=== PATIENT | male | born 1945 | race Caucasian/White ===

== ENCOUNTER 2018-04-28 06:00 | Emergency (ER) | payer MEDICARE, MEDICAID ==
[~2018-04-28] VITALS: Ht 177.8 cm; Wt 106.7 kg
[~2018-04-28 06:00] MED LIST: ALLO100T PO; ATOR20TA PO; CARV-50 PO; CEPH500C5 PO; CLOP75TA15 PO; FURO-150 PO; LISI10TA4 PO; WARF1TAB PO
[2018-04-28] MEDS ORDERED: fentaNYL/PF 50MCG/1 ML 2ML syringe IM ONE (06:10)
[2018-04-28] MEDS ORDERED: LORazepam 2 mg/ml vial IM ONE (06:30)
[2018-04-28] MEDS ORDERED: propofol 10mg/ml 20ml vial IV ONE (07:30)
[2018-04-28 08:33] VITALS: BP 143/85
[2018-04-28] MEDS ORDERED: acetaminophen 325mg tablet PO ONE (09:35)
[2018-04-28] MEDS ORDERED: lisinopril 10 MG tablet PO SCH (10:00)
[2018-04-28] MEDS ORDERED: clopidogrel 75mg tablet PO SCH (10:00)
[2018-04-28] MEDS ORDERED: carVEDilol 12.5mg tablet PO SCH (10:00)
[2018-04-28 10:23] LABS: INR 2.1 INR; PROTHROMBIN TIME 20.7 SECONDS (9.0-12.0)
[2018-04-28] MEDS ORDERED: atorvastatin 20mg tablet PO SCH (14:00)
[2018-04-28] MEDS ORDERED: allopurinol 300 MG tablet PO SCH (14:00)
[2018-04-28] MEDS ORDERED: warfarin 1mg tablet PO SCH (21:00)
== END 2018-04-28 11:28 | disposition home or self-care (01) ==
LOC: ER 06:00
DX: S43.005A Unspecified dislocation of left shoulder joint, initial encounter (principal); I11.0 Hypertensive heart disease with heart failure; I50.9 Heart failure, unspecified; E11.9 Type 2 diabetes mellitus without complications; Z95.0 Presence of cardiac pacemaker; W01.0XXA Fall on same level from slipping, tripping and stumbling without subsequent striking against object, initial encounter; Y93.89 Activity, other specified; Y92.89 Other specified places as the place of occurrence of the external cause; Y99.8 Other external cause status; Z79.01 Long term (current) use of anticoagulants; Z79.899 Other long term (current) drug therapy
CPT/HCPCS: 23650; 36415; 70450; 72125; 73020; 85610; 96372; 99152; 99153; 99285; J2060; J2704; J3010; J7030; L3650; A4620

== ENCOUNTER 2018-05-07 13:30 | Outpatient (CLI) | payer MEDICARE, MEDICAID ==
[2018-05-07 13:30] VITALS: BP 161/89
[~2018-05-07 13:30] MED LIST changes: -CEPH500C5 PO; -FURO-150 PO
== END 2018-05-07 14:25 | disposition home or self-care (01) ==
LOC: ORTHO 13:30
PROVIDERS: ATTEND Nurse Practitioner Family
DX: S43.005A Unspecified dislocation of left shoulder joint, initial encounter (principal); S42.202A Unspecified fracture of upper end of left humerus, initial encounter for closed fracture; Z79.899 Other long term (current) drug therapy; W18.30XA Fall on same level, unspecified, initial encounter; Y93.89 Activity, other specified; Y92.89 Other specified places as the place of occurrence of the external cause; Y99.8 Other external cause status
CPT/HCPCS: 99213

== ENCOUNTER 2018-05-09 15:26 | Emergency (ER) | payer MEDICARE, MEDICAID ==
[~2018-05-09] VITALS: Ht 170.2 cm; Wt 72.7 kg
[2018-05-09 18:07] VITALS: BP 128/87
== END 2018-05-09 18:09 | disposition home or self-care (01) ==
LOC: ER 15:27
DX: S40.012D Contusion of left shoulder, subsequent encounter (principal); S20.222D Contusion of left back wall of thorax, subsequent encounter; S30.1XXD Contusion of abdominal wall, subsequent encounter; I11.0 Hypertensive heart disease with heart failure; I50.9 Heart failure, unspecified; E78.00 Pure hypercholesterolemia, unspecified; I48.91 Unspecified atrial fibrillation; Z95.0 Presence of cardiac pacemaker; Z79.01 Long term (current) use of anticoagulants; Z79.899 Other long term (current) drug therapy; W18.39XD Other fall on same level, subsequent encounter
CPT/HCPCS: 99284

== ENCOUNTER 2018-05-13 11:37 | Outpatient (CLI) | payer MEDICARE, MEDICAID ==
[2018-05-13 11:39] VITALS: BP 152/90
== END 2018-05-13 12:55 | disposition home or self-care (01) ==
LOC: ORTHO 11:37
PROVIDERS: ATTEND Nurse Practitioner Family
DX: S42.202A Unspecified fracture of upper end of left humerus, initial encounter for closed fracture (principal); I11.0 Hypertensive heart disease with heart failure; I50.9 Heart failure, unspecified; W18.30XA Fall on same level, unspecified, initial encounter; Y93.89 Activity, other specified; Y92.89 Other specified places as the place of occurrence of the external cause; Y99.8 Other external cause status
CPT/HCPCS: 73010; 73030; 99213

== ENCOUNTER 2018-07-24 11:20 | Inpatient (IN) | payer MEDICARE, MEDICAID ==
[~2018-07-24] VITALS: Ht 180.3 cm; Wt 93.0 kg
[2018-07-24 12:28] LABS: BASOPHILS % (AUTO) 0.3 % (0-1); EOSINOPHILS # (AUTO) 0.1 X10'3 (0-0.9); EOSINOPHILS % (AUTO) 0.7 % (0-6); HEMATOCRIT 43.7 % (42.0-52.0); HEMOGLOBIN 14.7 g/dl (14.0-17.9); LYMPHOCYTES # (AUTO) 0.8 X10'3 (1.1-4.8); LYMPHOCYTES % (AUTO) 10.3 % (21-51); MEAN CORPUSCULAR HEMOGLOBIN 31.9 PG (27.0-31.0); MEAN CORPUSCULAR HGB CONC 33.7 % (33.0-36.5); MEAN CORPUSCULAR VOLUME 94.5 FL (78-98); MEAN PLATELET VOLUME 8.8 FL (7.4-10.4); MONOCYTES # (AUTO) 0.4 X10'3 (0-0.9); MONOCYTES % (AUTO) 4.8 % (2-12); NEUTROPHILS # (AUTO) 6.8 X10'3 (1.8-7.7); NEUTROPHILS % (AUTO) 83.9 % (42-75); PLATELET COUNT 284 X10'3 (140-440); RED BLOOD COUNT 4.63 X10'6 (4.70-6.10); RED CELL DISTRIBUTION WIDTH 14.1 % (11.5-14.5); WHITE BLOOD COUNT 8.1 X10'3 (4.5-11.0)
[2018-07-24 12:54] LABS: ALANINE AMINOTRANSFERASE 29 U/L (12-78); ALBUMIN 3.9 G/DL (3.4-5.0); ALKALINE PHOSPHATASE 97 IU/L (46-116); ANION GAP 7 (8-16); ASPARTATE AMINO TRANSFERASE 14 U/L (10-37); BILIRUBIN,TOTAL 1.2 MG/DL (0.1-1.0); BLOOD UREA NITROGEN 35 MG/DL (7-18); BUN/CREATININE RATIO 17.5 (5.4-32.0); CALCIUM 9.2 MG/DL (8.5-10.1); CHLORIDE 91 MMOL/L (99-107); ETHANOL < 0.010 GM/DL (0.0-0.010); POTASSIUM 5.5 MMOL/L (3.5-5.1); SODIUM 126 MMOL/L (135-145); TOTAL CARBON DIOXIDE 28.2 MMOL/L (24-32); eGFR 33 ML/MIN
[2018-07-24 12:58] LABS: GLUCOSE 699 MG/DL (70-104)
[2018-07-24 13:50] LABS: URINE AMPHETAMINE SCREEN NEGATIVE (Neg); URINE BARBITUATE SCREEN NEGATIVE (Neg); URINE BENZODIAZEPINES SCREEN NEGATIVE (Neg); URINE CANNABINOID SCREEN NEGATIVE (Neg); URINE COCAINE SCREEN NEGATIVE (Neg); URINE METHADONE SCREEN NEGATIVE (Neg); URINE OPIATE SCREEN NEGATIVE (Neg); URINE PHENCYCLIDINE SCREEN NEGATIVE (Neg)
[2018-07-24] MEDS ORDERED: insulin regular, human 10 units/0.1 ml syringe SQ ONE (14:35)
[2018-07-24] MEDS ORDERED: normal saline 1000ML IV soln IVB ONE (14:35)
[2018-07-24 15:01] LABS: ABG BASE EXCESS -2.7 mmol/L (-2.0-3.0); ABG HCO3 20.5 mmol/L (22.0-26.0); ABG OXYGEN SATURATION 97.6 % (95-98); ABG PCO2 (T) 31.4 mmHg (35.0-48.0); ABG PH (T) 7.432 (7.350-7.450); ABG PO2 (T) 105.2 mmHg (83-108); ALLEN'S TEST Positive; FCOHb 0.6 % (0.5-1.5); FMetHb 0.3 % (0.3-1.12); FO2Hb 96.7 % (94-100)
[2018-07-24 15:16] LABS: PROTHROMBIN TIME 29.5 SECONDS (9.0-12.0)
[2018-07-24] MEDS ORDERED: dextrose 50%-water 50ml dispensing syringe IV PRN ×2 (15:40)
[2018-07-24] MEDS ORDERED: mag hydrox/Alum hydrox/simeth 30ml oral suspension PO PRN (15:40)
[2018-07-24] MEDS ORDERED: potassium Cl 20 mEq SR tablet PO PRN ×2 (15:40)
[2018-07-24] MEDS ORDERED: dextrose ORAL solution 15 GM/59 ML bottle PO PRN (15:40)
[2018-07-24] MEDS ORDERED: potassium Cl 40MEQ/NS 500ml 500 ML IV PRN ×2 (15:40)
[2018-07-24] MEDS ORDERED: magnesium Cl slow-release 64mg tablet PO PRN (15:40)
[2018-07-24] MEDS ORDERED: acetaminophen 325mg tablet PO PRN (15:40)
[2018-07-24] MEDS ORDERED: magnesium 4gm in 100ml NS 100 ML IV PRN (15:40)
[2018-07-24] MEDS ORDERED: MESSAGE TO PHARMACY PO ONE (15:40)
[2018-07-24] MEDS ORDERED: ondansetron/PF 4mg/2ml inj IV PRN (15:40)
[2018-07-24] MEDS ORDERED: magnesium 1gm/100ml D5W IVPB 100 ML IV PRN (15:40)
[2018-07-24] MEDS ORDERED: magnesium hydroxide 30ml (MOM) UD suspension PO PRN (15:40)
[2018-07-24] MEDS ORDERED: glucagon, human recombinant 1mg kit SUBCUT PRN (15:40)
[2018-07-24] MEDS ORDERED: morphine 2 MG/ML inj. syringe IV PRN (15:40)
[2018-07-24] MEDS: miconazole nitrate cream 57gm TP SCH (15:45)
[2018-07-24] MEDS: duloxetine 20mg capsule.DR PO SCH (15:45)
[2018-07-24 16:05] LABS: HEMOGLOBIN A1C 11.9 % (4.5-6.2)
[2018-07-24 17:35] VITALS: BP 98/55
[2018-07-24 18:00] VITALS: BP 101/65
[2018-07-24] MEDS: insulin Lispro (HumaLOG) vial - multi-dose SQ SCH ×2 (18:07→21:17)
[2018-07-24] MEDS ORDERED: LORazepam 1 MG tablet PO PRN (19:15)
[2018-07-24] MEDS ORDERED: insulin Lispro (HumaLOG) vial - multi-dose SQ ONE (19:40)
[2018-07-24] MEDS ORDERED: warfarin 1mg tablet PO ONE (21:00)
[2018-07-24 22:00] VITALS: BP 101/53
[2018-07-24] MEDS: insulin glargine (Lantus) pen - multi-dose SQ SCH (22:30)
[2018-07-25 02:00] VITALS: BP 123/73
[2018-07-25 03:29] LABS: ALANINE AMINOTRANSFERASE 25 U/L (12-78); ALBUMIN 3.1 G/DL (3.4-5.0); ALBUMIN/GLOBULIN RATIO 0.9 (1.1-1.5); ALKALINE PHOSPHATASE 72 IU/L (46-116); ANION GAP 8 (8-16); ASPARTATE AMINO TRANSFERASE 27 U/L (10-37); BILIRUBIN,TOTAL 0.6 MG/DL (0.1-1.0); BLOOD UREA NITROGEN 30 MG/DL (7-18); BUN/CREATININE RATIO 25.2 (5.4-32.0); CALCIUM 8.9 MG/DL (8.5-10.1); CHLORIDE 102 MMOL/L (99-107); CREATININE 1.19 MG/DL (0.60-1.10); GLUCOSE 162 MG/DL (70-104); POTASSIUM 4.4 MMOL/L (3.5-5.1); SODIUM 137 MMOL/L (135-145); TOTAL PROTEIN 6.5 G/DL (6.4-8.2); eGFR 60 ML/MIN
[2018-07-25 03:36] LABS: MAGNESIUM 2.6 MG/DL (1.5-2.4)
[2018-07-25 05:56] LABS: INR 3.3 INR; PROTHROMBIN TIME 32.8 SECONDS (9.0-12.0)
[2018-07-25 06:00] VITALS: BP 102/63
[2018-07-25 06:02] LABS: BASOPHILS % (AUTO) 0.4 % (0-1); EOSINOPHILS # (AUTO) 0.1 X10'3 (0-0.9); EOSINOPHILS % (AUTO) 1.7 % (0-6); HEMATOCRIT 41.1 % (42.0-52.0); HEMOGLOBIN 13.7 g/dl (14.0-17.9); LYMPHOCYTES % (AUTO) 13.8 % (21-51); MEAN CORPUSCULAR HEMOGLOBIN 31.5 PG (27.0-31.0); MEAN CORPUSCULAR HGB CONC 33.5 % (33.0-36.5); MEAN CORPUSCULAR VOLUME 94.3 FL (78-98); MEAN PLATELET VOLUME 9.1 FL (7.4-10.4); MONOCYTES # (AUTO) 0.6 X10'3 (0-0.9); MONOCYTES % (AUTO) 7.7 % (2-12); NEUTROPHILS # (AUTO) 5.6 X10'3 (1.8-7.7); NEUTROPHILS % (AUTO) 76.4 % (42-75); PLATELET COUNT 231 X10'3 (140-440); RED BLOOD COUNT 4.36 X10'6 (4.70-6.10); RED CELL DISTRIBUTION WIDTH 14.2 % (11.5-14.5); WHITE BLOOD COUNT 7.4 X10'3 (4.5-11.0)
[2018-07-25] MEDS: miconazole nitrate cream 57gm TP SCH (08:00)
[2018-07-25] MEDS: K and/or MAG REPLACEMENT MC SCH (08:00)
[2018-07-25] MEDS ORDERED: enoxaparin 40mg/0.4ml syringe SUBCUT SCH (08:00)
[2018-07-25] MEDS: duloxetine 20mg capsule.DR PO SCH (08:00)
[2018-07-25] MEDS ORDERED: lisinopril 10 MG tablet PO SCH (08:00)
[2018-07-25] MEDS ORDERED: carVEDilol 12.5mg tablet PO SCH ×2 (08:00→20:00)
[2018-07-25] MEDS: atorvastatin 20mg tablet PO SCH (09:45)
[2018-07-25] MEDS: clopidogrel 75mg tablet PO SCH (09:45)
[2018-07-25] MEDS ORDERED: carVEDilol 3.125mg tablet PO ONE (09:50)
[2018-07-25] MEDS ORDERED: lisinopril 2.5mg tablet PO ONE (09:50)
[2018-07-25] MEDS: allopurinol 100mg tablet PO SCH (09:56)
[2018-07-25] MEDS: carVEDilol 3.125mg tablet PO SCH ×2 (09:56→21:51)
[2018-07-25] MEDS: insulin Lispro (HumaLOG) vial - multi-dose SQ SCH ×4 (10:00→20:36)
[2018-07-25 12:54] VITALS: BP 97/58
[2018-07-25 19:50] VITALS: BP 96/58
[2018-07-25] MEDS ORDERED: lisinopril 2.5mg tablet PO SCH (20:00)
[2018-07-25] MEDS: insulin glargine (Lantus) pen - multi-dose SQ SCH (20:34)
[2018-07-25] MEDS ORDERED: warfarin 1mg tablet PO SCH (21:00)
[2018-07-25] MEDS: lisinopril 2.5mg tablet PO SCH (21:51)
[2018-07-25 22:45] VITALS: BP 153/88
[2018-07-25] MEDS: dextrose ORAL solution 15 GM/59 ML bottle PO PRN ×2 (23:00→23:21)
[2018-07-26] VITALS: BP 92/59
[2018-07-26 06:16] LABS: BASOPHILS % (AUTO) 0.1 % (0-1); EOSINOPHILS % (AUTO) 0.4 % (0-6); HEMATOCRIT 41.9 % (42.0-52.0); HEMOGLOBIN 14.1 g/dl (14.0-17.9); LYMPHOCYTES # (AUTO) 0.9 X10'3 (1.1-4.8); LYMPHOCYTES % (AUTO) 11.2 % (21-51); MEAN CORPUSCULAR HEMOGLOBIN 31.7 PG (27.0-31.0); MEAN CORPUSCULAR HGB CONC 33.6 % (33.0-36.5); MEAN CORPUSCULAR VOLUME 94.5 FL (78-98); MONOCYTES # (AUTO) 0.5 X10'3 (0-0.9); MONOCYTES % (AUTO) 6.5 % (2-12); NEUTROPHILS # (AUTO) 6.7 X10'3 (1.8-7.7); NEUTROPHILS % (AUTO) 81.8 % (42-75); PLATELET COUNT 216 X10'3 (140-440); RED BLOOD COUNT 4.44 X10'6 (4.70-6.10); RED CELL DISTRIBUTION WIDTH 14.5 % (11.5-14.5); WHITE BLOOD COUNT 8.2 X10'3 (4.5-11.0)
[2018-07-26 06:29] LABS: INR 2.6 INR
[2018-07-26 06:53] LABS: ALANINE AMINOTRANSFERASE 26 U/L (12-78); ALBUMIN 3.2 G/DL (3.4-5.0); ALBUMIN/GLOBULIN RATIO 0.9 (1.1-1.5); ALKALINE PHOSPHATASE 76 IU/L (46-116); ANION GAP 11 (8-16); ASPARTATE AMINO TRANSFERASE 26 U/L (10-37); BILIRUBIN,TOTAL 0.7 MG/DL (0.1-1.0); BLOOD UREA NITROGEN 32 MG/DL (7-18); BUN/CREATININE RATIO 22.2 (5.4-32.0); CALCIUM 8.8 MG/DL (8.5-10.1); CHLORIDE 98 MMOL/L (99-107); CREATININE 1.44 MG/DL (0.60-1.10); GLUCOSE 284 MG/DL (70-104); MAGNESIUM 2.3 MG/DL (1.5-2.4); POTASSIUM 4.4 MMOL/L (3.5-5.1); SODIUM 133 MMOL/L (135-145); TOTAL CARBON DIOXIDE 23.9 MMOL/L (24-32); TOTAL PROTEIN 6.8 G/DL (6.4-8.2); eGFR 48 ML/MIN
[2018-07-26 07:00] VITALS: BP 121/73
[2018-07-26] MEDS: K and/or MAG REPLACEMENT MC SCH (08:00)
[2018-07-26] MEDS: duloxetine 20mg capsule.DR PO SCH (08:00)
[2018-07-26] MEDS: allopurinol 100mg tablet PO SCH (08:32)
[2018-07-26] MEDS: lisinopril 2.5mg tablet PO SCH ×2 (08:32→20:23)
[2018-07-26] MEDS: atorvastatin 20mg tablet PO SCH (08:32)
[2018-07-26] MEDS: carVEDilol 3.125mg tablet PO SCH ×2 (08:33→20:23)
[2018-07-26] MEDS: miconazole nitrate cream 57gm TP SCH (08:35)
[2018-07-26] MEDS: insulin Lispro (HumaLOG) vial - multi-dose SQ SCH ×3 (08:49→19:30)
[2018-07-26] MEDS: clopidogrel 75mg tablet PO SCH (08:50)
[2018-07-26 12:06] VITALS: BP 91/58
[2018-07-26 20:00] VITALS: BP 98/62
[2018-07-26 20:15] VITALS: BP 110/60
[2018-07-26] MEDS ORDERED: warfarin 1mg tablet PO ONE (21:00)
[2018-07-26] MEDS: insulin glargine (Lantus) pen - multi-dose SQ SCH (21:33)
[2018-07-27] VITALS: BP 106/66
[2018-07-27 07:00] VITALS: BP 91/59
[2018-07-27 07:23] LABS: BASOPHILS # (AUTO) 0.1 X10'3 (0-0.2); EOSINOPHILS # (AUTO) 0.1 X10'3 (0-0.9); EOSINOPHILS % (AUTO) 1.7 % (0-6); HEMATOCRIT 38.2 % (42.0-52.0); HEMOGLOBIN 12.8 g/dl (14.0-17.9); LYMPHOCYTES # (AUTO) 1.1 X10'3 (1.1-4.8); LYMPHOCYTES % (AUTO) 19.9 % (21-51); MEAN CORPUSCULAR HEMOGLOBIN 31.9 PG (27.0-31.0); MEAN CORPUSCULAR HGB CONC 33.5 % (33.0-36.5); MEAN CORPUSCULAR VOLUME 95.1 FL (78-98); MEAN PLATELET VOLUME 8.4 FL (7.4-10.4); MONOCYTES # (AUTO) 0.6 X10'3 (0-0.9); MONOCYTES % (AUTO) 9.9 % (2-12); NEUTROPHILS # (AUTO) 3.8 X10'3 (1.8-7.7); NEUTROPHILS % (AUTO) 67.5 % (42-75); PLATELET COUNT 196 X10'3 (140-440); RED BLOOD COUNT 4.01 X10'6 (4.70-6.10); RED CELL DISTRIBUTION WIDTH 14.2 % (11.5-14.5); WHITE BLOOD COUNT 5.7 X10'3 (4.5-11.0)
[2018-07-27 07:35] LABS: INR 1.9 INR; PROTHROMBIN TIME 18.7 SECONDS (9.0-12.0)
[2018-07-27 07:39] LABS: ALANINE AMINOTRANSFERASE 25 U/L (12-78); ALBUMIN 2.9 G/DL (3.4-5.0); ALBUMIN/GLOBULIN RATIO 0.9 (1.1-1.5); ALKALINE PHOSPHATASE 64 IU/L (46-116); ANION GAP 8 (8-16); ASPARTATE AMINO TRANSFERASE 21 U/L (10-37); BILIRUBIN,TOTAL 0.8 MG/DL (0.1-1.0); BLOOD UREA NITROGEN 30 MG/DL (7-18); BUN/CREATININE RATIO 21.7 (5.4-32.0); CALCIUM 8.4 MG/DL (8.5-10.1); CHLORIDE 101 MMOL/L (99-107); CREATININE 1.38 MG/DL (0.60-1.10); GLUCOSE 213 MG/DL (70-104); MAGNESIUM 2.2 MG/DL (1.5-2.4); POTASSIUM 4.6 MMOL/L (3.5-5.1); SODIUM 136 MMOL/L (135-145); TOTAL CARBON DIOXIDE 27.2 MMOL/L (24-32); TOTAL PROTEIN 6.2 G/DL (6.4-8.2); eGFR 51 ML/MIN
[2018-07-27] MEDS: atorvastatin 20mg tablet PO SCH (07:59)
[2018-07-27] MEDS: clopidogrel 75mg tablet PO SCH (07:59)
[2018-07-27] MEDS: allopurinol 100mg tablet PO SCH (08:00)
[2018-07-27] MEDS: lisinopril 2.5mg tablet PO SCH (08:00)
[2018-07-27] MEDS: carVEDilol 3.125mg tablet PO SCH (08:00)
[2018-07-27] MEDS: K and/or MAG REPLACEMENT MC SCH (08:40)
[2018-07-27] MEDS: insulin Lispro (HumaLOG) vial - multi-dose SQ SCH ×2 (08:46→13:06)
[2018-07-27] MEDS ORDERED: LISI2.5T2 PO (12:51)
[2018-07-27] MEDS ORDERED: GLIP5TAB13 PO (12:51)
[2018-07-27] MEDS ORDERED: COR3.125T PO (12:51)
[2018-07-27] MEDS ORDERED: warfarin 1mg tablet PO ONE (21:00)
== END 2018-07-27 17:56 | disposition home or self-care (01) | DRG 682 ==
LOC: ER 11:21 → ED HOLD 15:38 → PCU 3S 17:30 → SUR 3N 07-25 11:46
PROVIDERS: ADMIT Internal Medicine; ATTEND Internal Medicine
DX: N17.9 Acute kidney failure, unspecified (principal); E11.00 Type 2 diabetes mellitus with hyperosmolarity without nonketotic hyperglycemic-hyperosmolar coma (NKHHC); F32.1 Major depressive disorder, single episode, moderate; I50.9 Heart failure, unspecified; I11.0 Hypertensive heart disease with heart failure; L89.152 Pressure ulcer of sacral region, stage 2; I25.10 Atherosclerotic heart disease of native coronary artery without angina pectoris; F41.9 Anxiety disorder, unspecified; E11.622 Type 2 diabetes mellitus with other skin ulcer; E78.00 Pure hypercholesterolemia, unspecified; E78.5 Hyperlipidemia, unspecified; E86.0 Dehydration; I48.0 Paroxysmal atrial fibrillation; Z59.0 Homelessness; Z79.01 Long term (current) use of anticoagulants; Z79.899 Other long term (current) drug therapy
CPT/HCPCS: 36415; 36600; 80053; 80305; 80320; 82009; 82803; 82948; 83036; 83735; 84443; 84484; 85018; 85025; 85610; 87070; 96360; 96372; 99285; J1815

== ENCOUNTER 2019-05-12 18:32 | Emergency (ER) | payer MEDICARE, MEDICAID ==
[~2019-05-12] VITALS: Ht 180.3 cm; Wt 82.7 kg
[~2019-05-12 18:32] MED LIST changes: -CARV-50 PO; +COR3.125T PO; +GLIP5TAB13 PO; -LISI10TA4 PO; +LISI2.5T2 PO; +ONDA4TAB6 PO
[2019-05-12 18:41] VITALS: BP 170/95
== END 2019-05-12 20:04 | disposition home or self-care (01) ==
LOC: ER 18:33
DX: S90.812A Abrasion, left foot, initial encounter (principal); I48.91 Unspecified atrial fibrillation; I11.0 Hypertensive heart disease with heart failure; I50.9 Heart failure, unspecified; E78.00 Pure hypercholesterolemia, unspecified; E11.9 Type 2 diabetes mellitus without complications; Z95.0 Presence of cardiac pacemaker; Z59.0 Homelessness; Z79.01 Long term (current) use of anticoagulants; Z79.899 Other long term (current) drug therapy; W26.8XXA Contact with other sharp object(s), not elsewhere classified, initial encounter; Y93.89 Activity, other specified; Y92.89 Other specified places as the place of occurrence of the external cause; Y99.8 Other external cause status
CPT/HCPCS: 29125; 99283

== ENCOUNTER 2019-05-14 15:33 | Emergency (ER) | payer MEDICARE, MEDICAID ==
[~2019-05-14] VITALS: Ht 180.3 cm; Wt 93.2 kg
[2019-05-14 15:50] VITALS: BP 179/99
== END 2019-05-14 16:55 | disposition home or self-care (01) ==
LOC: ER 15:34
DX: S90.32XD Contusion of left foot, subsequent encounter (principal); I83.92 Asymptomatic varicose veins of left lower extremity; I48.91 Unspecified atrial fibrillation; I11.0 Hypertensive heart disease with heart failure; I50.9 Heart failure, unspecified; E78.00 Pure hypercholesterolemia, unspecified; E11.9 Type 2 diabetes mellitus without complications; Z95.0 Presence of cardiac pacemaker; Z59.0 Homelessness; Z79.01 Long term (current) use of anticoagulants; Z79.899 Other long term (current) drug therapy; W26.8XXD Contact with other sharp object(s), not elsewhere classified, subsequent encounter
CPT/HCPCS: 99282; 99283

== ENCOUNTER 2019-11-09 11:47 | Emergency (ER) | payer MEDICARE, MEDICAID ==
[~2019-11-09] VITALS: Ht 177.8 cm; Wt 100.1 kg
[2019-11-09 12:03] VITALS: BP 179/97
[2019-11-09] MEDS ORDERED: AMOX-422 PO (12:36)
== END 2019-11-09 12:50 | disposition home or self-care (01) ==
LOC: ER 11:48
DX: J32.9 Chronic sinusitis, unspecified (principal); I48.91 Unspecified atrial fibrillation; I50.9 Heart failure, unspecified; E78.00 Pure hypercholesterolemia, unspecified; I11.0 Hypertensive heart disease with heart failure; E11.9 Type 2 diabetes mellitus without complications; Z95.0 Presence of cardiac pacemaker; Z59.0 Homelessness; Z79.01 Long term (current) use of anticoagulants; Z79.2 Long term (current) use of antibiotics; Z79.899 Other long term (current) drug therapy
CPT/HCPCS: 99283

== ENCOUNTER 2020-01-03 13:05 | Outpatient (CLI) | payer MEDICARE, MEDICAID ==
[~2020-01-03 13:05] MED LIST changes: -ALLO100T PO; +ALLO300T8 PO; -ATOR20TA PO; +ATOR20TA66 PO; +CARV25TA2 PO; -CLOP75TA15 PO; +CLOP75TA35 PO; -COR3.125T PO; +COU3T PO; -GLIP5TAB13 PO; +LISI-600 PO; -LISI2.5T2 PO; +METF-950 PO; -ONDA4TAB6 PO; -WARF1TAB PO
== END 2020-01-03 14:42 | disposition home or self-care (01) ==
LOC: WOUND CARE 13:05
PROVIDERS: ATTEND Nurse Practitioner Family
DX: E11.622 Type 2 diabetes mellitus with other skin ulcer (principal); I83.022 Varicose veins of left lower extremity with ulcer of calf; L97.821 Non-pressure chronic ulcer of other part of left lower leg limited to breakdown of skin; L97.221 Non-pressure chronic ulcer of left calf limited to breakdown of skin; E11.22 Type 2 diabetes mellitus with diabetic chronic kidney disease; I13.0 Hypertensive heart and chronic kidney disease with heart failure and stage 1 through stage 4 chronic kidney disease, or unspecified chronic kidney disease; N18.3 Chronic kidney disease, stage 3 (moderate); I50.9 Heart failure, unspecified; I25.10 Atherosclerotic heart disease of native coronary artery without angina pectoris; E11.51 Type 2 diabetes mellitus with diabetic peripheral angiopathy without gangrene; M81.0 Age-related osteoporosis without current pathological fracture; E78.5 Hyperlipidemia, unspecified; E78.00 Pure hypercholesterolemia, unspecified; I48.20 Chronic atrial fibrillation, unspecified; M1A.9XX0 Chronic gout, unspecified, without tophus (tophi); F41.9 Anxiety disorder, unspecified; F42.9 Obsessive-compulsive disorder, unspecified; Z95.810 Presence of automatic (implantable) cardiac defibrillator; Z79.01 Long term (current) use of anticoagulants; Z79.899 Other long term (current) drug therapy; Z79.84 Long term (current) use of oral hypoglycemic drugs; Z79.02 Long term (current) use of antithrombotics/antiplatelets; Z86.010 Personal history of colon polyps
CPT/HCPCS: G0463

== ENCOUNTER 2020-01-03 20:18 | Emergency (ER) | payer MEDICARE, MEDICAID ==
[~2020-01-03] VITALS: Ht 180.3 cm; Wt 97.7 kg
[2020-01-03 22:10] VITALS: BP 166/82
== END 2020-01-03 22:13 | disposition home or self-care (01) ==
LOC: ER 20:19
DX: F42.9 Obsessive-compulsive disorder, unspecified (principal); I48.91 Unspecified atrial fibrillation; I50.9 Heart failure, unspecified; E78.00 Pure hypercholesterolemia, unspecified; I13.0 Hypertensive heart and chronic kidney disease with heart failure and stage 1 through stage 4 chronic kidney disease, or unspecified chronic kidney disease; E11.22 Type 2 diabetes mellitus with diabetic chronic kidney disease; N18.9 Chronic kidney disease, unspecified; F41.9 Anxiety disorder, unspecified; Z95.0 Presence of cardiac pacemaker; Z79.01 Long term (current) use of anticoagulants; Z79.899 Other long term (current) drug therapy
CPT/HCPCS: 99281

== ENCOUNTER 2020-01-09 10:55 | Day surgery (SDC) | payer MEDICARE, MEDICAID ==
[2020-01-09] MEDS ORDERED: LIDOcaine 2% 5ml jelly ONE (11:17)
== END 2020-01-09 12:02 | disposition home or self-care (01) ==
LOC: WOUND CARE 10:55
PROVIDERS: ATTEND Nurse Practitioner
DX: E11.622 Type 2 diabetes mellitus with other skin ulcer (principal); I83.022 Varicose veins of left lower extremity with ulcer of calf; L97.821 Non-pressure chronic ulcer of other part of left lower leg limited to breakdown of skin; L97.221 Non-pressure chronic ulcer of left calf limited to breakdown of skin; E11.22 Type 2 diabetes mellitus with diabetic chronic kidney disease; I13.0 Hypertensive heart and chronic kidney disease with heart failure and stage 1 through stage 4 chronic kidney disease, or unspecified chronic kidney disease; N18.3 Chronic kidney disease, stage 3 (moderate); I50.9 Heart failure, unspecified; I25.10 Atherosclerotic heart disease of native coronary artery without angina pectoris; E11.51 Type 2 diabetes mellitus with diabetic peripheral angiopathy without gangrene; M81.0 Age-related osteoporosis without current pathological fracture; E78.5 Hyperlipidemia, unspecified; E78.00 Pure hypercholesterolemia, unspecified; I48.20 Chronic atrial fibrillation, unspecified; M1A.9XX0 Chronic gout, unspecified, without tophus (tophi); F41.9 Anxiety disorder, unspecified; F42.9 Obsessive-compulsive disorder, unspecified; Z95.810 Presence of automatic (implantable) cardiac defibrillator; Z79.01 Long term (current) use of anticoagulants; Z79.899 Other long term (current) drug therapy; Z79.84 Long term (current) use of oral hypoglycemic drugs; Z79.02 Long term (current) use of antithrombotics/antiplatelets; Z86.010 Personal history of colon polyps
CPT/HCPCS: 97597

== ENCOUNTER 2020-01-19 09:57 | Day surgery (SDC) | payer MEDICARE, MEDICAID | END 2020-01-19 11:08 | disposition home or self-care (01) | LOC: WOUND CARE 09:57 | PROVIDERS: ATTEND Nurse Practitioner | DX: E11.622 Type 2 diabetes mellitus with other skin ulcer (principal); I83.022 Varicose veins of left lower extremity with ulcer of calf; L97.821 Non-pressure chronic ulcer of other part of left lower leg limited to breakdown of skin; L97.221 Non-pressure chronic ulcer of left calf limited to breakdown of skin; E11.22 Type 2 diabetes mellitus with diabetic chronic kidney disease; I13.0 Hypertensive heart and chronic kidney disease with heart failure and stage 1 through stage 4 chronic kidney disease, or unspecified chronic kidney disease; N18.3 Chronic kidney disease, stage 3 (moderate); I50.9 Heart failure, unspecified; I25.10 Atherosclerotic heart disease of native coronary artery without angina pectoris; E11.51 Type 2 diabetes mellitus with diabetic peripheral angiopathy without gangrene; M81.0 Age-related osteoporosis without current pathological fracture; E78.5 Hyperlipidemia, unspecified; E78.00 Pure hypercholesterolemia, unspecified; I48.20 Chronic atrial fibrillation, unspecified; M1A.9XX0 Chronic gout, unspecified, without tophus (tophi); F41.9 Anxiety disorder, unspecified; F42.9 Obsessive-compulsive disorder, unspecified; Z95.810 Presence of automatic (implantable) cardiac defibrillator; Z79.01 Long term (current) use of anticoagulants; Z79.899 Other long term (current) drug therapy; Z79.84 Long term (current) use of oral hypoglycemic drugs; Z79.02 Long term (current) use of antithrombotics/antiplatelets; Z86.010 Personal history of colon polyps | CPT/HCPCS: G0463 ==

== ENCOUNTER 2020-01-26 10:40 | Outpatient (CLI) | payer MEDICARE, MEDICAID | END 2020-01-26 10:48 | disposition home or self-care (01) | LOC: WOUND CARE 10:40 | PROVIDERS: ATTEND Nurse Practitioner | DX: E11.622 Type 2 diabetes mellitus with other skin ulcer (principal); I83.022 Varicose veins of left lower extremity with ulcer of calf; L97.821 Non-pressure chronic ulcer of other part of left lower leg limited to breakdown of skin; L97.221 Non-pressure chronic ulcer of left calf limited to breakdown of skin; E11.22 Type 2 diabetes mellitus with diabetic chronic kidney disease; I13.0 Hypertensive heart and chronic kidney disease with heart failure and stage 1 through stage 4 chronic kidney disease, or unspecified chronic kidney disease; N18.3 Chronic kidney disease, stage 3 (moderate); I50.9 Heart failure, unspecified; I25.10 Atherosclerotic heart disease of native coronary artery without angina pectoris; E11.51 Type 2 diabetes mellitus with diabetic peripheral angiopathy without gangrene; M81.0 Age-related osteoporosis without current pathological fracture; E78.5 Hyperlipidemia, unspecified; E78.00 Pure hypercholesterolemia, unspecified; M1A.9XX0 Chronic gout, unspecified, without tophus (tophi); I48.20 Chronic atrial fibrillation, unspecified; F41.9 Anxiety disorder, unspecified; F42.9 Obsessive-compulsive disorder, unspecified; Z95.810 Presence of automatic (implantable) cardiac defibrillator; Z79.01 Long term (current) use of anticoagulants; Z79.899 Other long term (current) drug therapy; Z79.84 Long term (current) use of oral hypoglycemic drugs; Z79.02 Long term (current) use of antithrombotics/antiplatelets; Z86.010 Personal history of colon polyps | CPT/HCPCS: G0463 ==

== ENCOUNTER 2020-03-06 08:33 | Day surgery (SDC) | payer MEDICARE, MEDICAID ==
[2020-03-06] MEDS ORDERED: LIDOcaine 2% 5ml jelly ONE (09:10)
== END 2020-03-06 10:43 | disposition home or self-care (01) ==
LOC: WOUND CARE 08:33
PROVIDERS: ATTEND Nurse Practitioner
DX: E11.622 Type 2 diabetes mellitus with other skin ulcer (principal); I83.022 Varicose veins of left lower extremity with ulcer of calf; L97.221 Non-pressure chronic ulcer of left calf limited to breakdown of skin; L97.812 Non-pressure chronic ulcer of other part of right lower leg with fat layer exposed; E11.22 Type 2 diabetes mellitus with diabetic chronic kidney disease; I13.0 Hypertensive heart and chronic kidney disease with heart failure and stage 1 through stage 4 chronic kidney disease, or unspecified chronic kidney disease; N18.3 Chronic kidney disease, stage 3 (moderate); I50.9 Heart failure, unspecified; I25.10 Atherosclerotic heart disease of native coronary artery without angina pectoris; E11.51 Type 2 diabetes mellitus with diabetic peripheral angiopathy without gangrene; M81.0 Age-related osteoporosis without current pathological fracture; E78.5 Hyperlipidemia, unspecified; E78.00 Pure hypercholesterolemia, unspecified; I48.20 Chronic atrial fibrillation, unspecified; M1A.9XX0 Chronic gout, unspecified, without tophus (tophi); F41.9 Anxiety disorder, unspecified; F42.9 Obsessive-compulsive disorder, unspecified; Z95.810 Presence of automatic (implantable) cardiac defibrillator; Z79.01 Long term (current) use of anticoagulants; Z79.899 Other long term (current) drug therapy; Z79.84 Long term (current) use of oral hypoglycemic drugs; Z79.02 Long term (current) use of antithrombotics/antiplatelets; Z86.010 Personal history of colon polyps
CPT/HCPCS: 36416; 82948; 93970; 97597

== ENCOUNTER 2020-03-13 09:00 | Outpatient (CLI) | payer MEDICARE, MEDICAID | END 2020-03-13 11:55 | disposition home or self-care (01) | LOC: EDSTATUS 09:00 → WOUND CARE 09:00 | PROVIDERS: ATTEND Nurse Practitioner | DX: E11.622 Type 2 diabetes mellitus with other skin ulcer (principal); I83.012 Varicose veins of right lower extremity with ulcer of calf; L97.212 Non-pressure chronic ulcer of right calf with fat layer exposed; L97.812 Non-pressure chronic ulcer of other part of right lower leg with fat layer exposed; I83.022 Varicose veins of left lower extremity with ulcer of calf; L97.221 Non-pressure chronic ulcer of left calf limited to breakdown of skin; E11.22 Type 2 diabetes mellitus with diabetic chronic kidney disease; I13.0 Hypertensive heart and chronic kidney disease with heart failure and stage 1 through stage 4 chronic kidney disease, or unspecified chronic kidney disease; N18.3 Chronic kidney disease, stage 3 (moderate); I50.9 Heart failure, unspecified; I25.10 Atherosclerotic heart disease of native coronary artery without angina pectoris; E11.51 Type 2 diabetes mellitus with diabetic peripheral angiopathy without gangrene; M81.0 Age-related osteoporosis without current pathological fracture; E78.5 Hyperlipidemia, unspecified; E78.00 Pure hypercholesterolemia, unspecified; I48.20 Chronic atrial fibrillation, unspecified; M1A.9XX0 Chronic gout, unspecified, without tophus (tophi); F41.9 Anxiety disorder, unspecified; F42.9 Obsessive-compulsive disorder, unspecified; Z95.810 Presence of automatic (implantable) cardiac defibrillator; Z79.01 Long term (current) use of anticoagulants; Z79.899 Other long term (current) drug therapy; Z79.84 Long term (current) use of oral hypoglycemic drugs; Z79.02 Long term (current) use of antithrombotics/antiplatelets; Z86.010 Personal history of colon polyps | CPT/HCPCS: 93922; 93925; G0463 ==

== ENCOUNTER 2020-03-20 09:02 | Outpatient (CLI) | payer MEDICARE, MEDICAID | END 2020-03-20 09:52 | disposition home or self-care (01) | LOC: WOUND CARE 09:02 | PROVIDERS: ATTEND Nurse Practitioner | DX: E11.622 Type 2 diabetes mellitus with other skin ulcer (principal); I83.012 Varicose veins of right lower extremity with ulcer of calf; L97.212 Non-pressure chronic ulcer of right calf with fat layer exposed; L97.812 Non-pressure chronic ulcer of other part of right lower leg with fat layer exposed; I83.022 Varicose veins of left lower extremity with ulcer of calf; L97.221 Non-pressure chronic ulcer of left calf limited to breakdown of skin; E11.22 Type 2 diabetes mellitus with diabetic chronic kidney disease; I13.0 Hypertensive heart and chronic kidney disease with heart failure and stage 1 through stage 4 chronic kidney disease, or unspecified chronic kidney disease; N18.3 Chronic kidney disease, stage 3 (moderate); I50.9 Heart failure, unspecified; I25.10 Atherosclerotic heart disease of native coronary artery without angina pectoris; E11.51 Type 2 diabetes mellitus with diabetic peripheral angiopathy without gangrene; M81.0 Age-related osteoporosis without current pathological fracture; E78.00 Pure hypercholesterolemia, unspecified; E78.5 Hyperlipidemia, unspecified; I48.20 Chronic atrial fibrillation, unspecified; M1A.9XX0 Chronic gout, unspecified, without tophus (tophi); F41.9 Anxiety disorder, unspecified; F42.9 Obsessive-compulsive disorder, unspecified; Z95.810 Presence of automatic (implantable) cardiac defibrillator; Z79.01 Long term (current) use of anticoagulants; Z79.899 Other long term (current) drug therapy; Z79.84 Long term (current) use of oral hypoglycemic drugs; Z79.02 Long term (current) use of antithrombotics/antiplatelets; Z86.010 Personal history of colon polyps | CPT/HCPCS: G0463 ==

== ENCOUNTER 2020-03-27 10:45 | Outpatient (CLI) | payer MEDICARE, MEDICAID | END 2020-03-27 23:59 | disposition home or self-care (01) | LOC: VAS 10:45 | PROVIDERS: ATTEND Radiology Diagnostic Radiology | DX: R59.9 Enlarged lymph nodes, unspecified (principal) | CPT/HCPCS: 93970 ==

== ENCOUNTER 2020-12-21 11:20 | Day surgery (SDC) | payer MEDICARE, MEDICAID ==
[~2020-12-21 11:20] MED LIST changes: +CLOP75TA34 PO; -CLOP75TA35 PO; -LISI-600 PO; +LISI20TA28 PO
== END 2021-01-02 23:00 | disposition home or self-care (01) ==
LOC: WOUND CARE 11:20
PROVIDERS: ATTEND Nurse Practitioner
DX: E11.622 Type 2 diabetes mellitus with other skin ulcer (principal); L97.821 Non-pressure chronic ulcer of other part of left lower leg limited to breakdown of skin; L97.811 Non-pressure chronic ulcer of other part of right lower leg limited to breakdown of skin; I11.0 Hypertensive heart disease with heart failure; I50.9 Heart failure, unspecified; I25.2 Old myocardial infarction; E11.51 Type 2 diabetes mellitus with diabetic peripheral angiopathy without gangrene; I25.10 Atherosclerotic heart disease of native coronary artery without angina pectoris; E78.5 Hyperlipidemia, unspecified; I87.2 Venous insufficiency (chronic) (peripheral); M10.9 Gout, unspecified; M81.0 Age-related osteoporosis without current pathological fracture; Z79.84 Long term (current) use of oral hypoglycemic drugs; Z95.0 Presence of cardiac pacemaker; Z79.01 Long term (current) use of anticoagulants
CPT/HCPCS: G0463

== ENCOUNTER 2021-01-11 11:38 | Emergency (ER) | payer MEDICARE, MEDICAID ==
[~2021-01-11] VITALS: Ht 177.8 cm; Wt 93.6 kg
[2021-01-11 13:28] LABS: BASOPHILS % (AUTO) 0.3 % (0-1); EOSINOPHILS # (AUTO) 0.1 X10'3 (0-0.9); EOSINOPHILS % (AUTO) 0.9 % (0-6); HEMATOCRIT 39.4 % (42.0-52.0); HEMOGLOBIN 13.1 g/dl (14.0-17.9); LYMPHOCYTES # (AUTO) 0.9 X10'3 (1.1-4.8); LYMPHOCYTES % (AUTO) 9.9 % (21-51); MEAN CORPUSCULAR HEMOGLOBIN 32.4 PG (27.0-31.0); MEAN CORPUSCULAR HGB CONC 33.3 g/dL (33.0-36.5); MEAN CORPUSCULAR VOLUME 97.4 FL (78-98); MONOCYTES # (AUTO) 0.8 X10'3 (0-0.9); MONOCYTES % (AUTO) 8.4 % (2-12); NEUTROPHILS # (AUTO) 7.3 X10'3 (1.8-7.7); NEUTROPHILS % (AUTO) 80.5 % (42-75); PLATELET COUNT 197 X10'3 (140-440); RED BLOOD COUNT 4.05 X10'6 (4.70-6.10); RED CELL DISTRIBUTION WIDTH 15.2 % (11.5-14.5); WHITE BLOOD COUNT 9.1 X10'3 (4.5-11.0)
[2021-01-11 13:45] LABS: ALANINE AMINOTRANSFERASE 29 U/L (12-78); ALBUMIN 3.9 G/DL (3.4-5.0); ALKALINE PHOSPHATASE 67 IU/L (46-116); ANION GAP 7 (8-16); ASPARTATE AMINO TRANSFERASE 28 U/L (10-37); BILIRUBIN,TOTAL 1.2 MG/DL (0.1-1.0); BLOOD UREA NITROGEN 24 MG/DL (7-18); CALCIUM 8.8 MG/DL (8.5-10.1); CHLORIDE 105 MMOL/L (99-107); CREATININE 1.33 MG/DL (0.60-1.10); GLUCOSE 100 MG/DL (70-104); POTASSIUM 4.2 MMOL/L (3.5-5.1); SODIUM 141 MMOL/L (135-145); TOTAL CARBON DIOXIDE 28.9 MMOL/L (24-32); TOTAL PROTEIN 7.9 G/DL (6.4-8.2); eGFR 53 ML/MIN
[2021-01-11 14:43] VITALS: BP 157/88
== END 2021-01-11 15:04 | disposition home or self-care (01) ==
LOC: ER 11:41
DX: K62.5 Hemorrhage of anus and rectum (principal); I48.91 Unspecified atrial fibrillation; E78.00 Pure hypercholesterolemia, unspecified; I13.10 Hypertensive heart and chronic kidney disease without heart failure, with stage 1 through stage 4 chronic kidney disease, or unspecified chronic kidney disease; E11.22 Type 2 diabetes mellitus with diabetic chronic kidney disease; N18.9 Chronic kidney disease, unspecified; I50.9 Heart failure, unspecified; F41.9 Anxiety disorder, unspecified; Z95.0 Presence of cardiac pacemaker; Z60.2 Problems related to living alone; Z59.0 Homelessness; Z79.899 Other long term (current) drug therapy; Z79.84 Long term (current) use of oral hypoglycemic drugs
CPT/HCPCS: 36415; 80053; 85025; 85610; 99283

== ENCOUNTER 2025-03-01 14:57 | Outpatient (CLI) | payer MEDICARE, MEDICAID ==
[~2025-03-01 14:57] MED LIST changes: +METF-1203 PO; -METF-950 PO
--- NOTE | 2025-03-02 18:13 | CARDIOLOGY REPORT ---
APPROVED REPORT EXAM: Comprehensive 2D, Doppler, and color-flow Echocardiogram. Patient Location: OUT-PATIENT Blood Pressure: 145/65 mmHg Heart Rate: 70 bpm Rhythm: Pacemaker Indications Chronic Atrial Fibrillation Congestive Heart Failure Hypertension Pacemaker x 2 [employer]ICENSED [employer] HEALTH AGENT: Justin Hernandez MD Previous ECHO: 08/12/17, [facility], SS, EF: 50; mod AI/MR/TR, mRVE; modBAE 2D Dimensions LA Diam4.6 cm IVSd 1.4 (0.7-1.1cm) LVDd 4.9 cm PWd 1.1 (0.7-1.1cm) IVSs 1.5 (0.8-1.2cm) LVDs 3.5 (2.5-4.0cm) PWs 1.4 (0.8-1.2cm) LVOT Diameter 2.14 (1.8-2.4cm) LVEF(%) 56.3 (>50%) IVC 26.90 mm FS (%) 29.5 % SV 65.0 ml M-Mode Dimensions Left Atrium(MM) 4.64 (2.5-4.0cm) Aortic Root 2.49 (2.2-3.7cm) MV EPSS 0.8 (<0.5cm) Aortic Valve AoV Peak Jaciel. 174.5 cm/s AoV VTI 35.7 cm AO Peak GR. 12.2 mmHg AO Mean GR. 5 mmHg LVOT VTI 24.01 cm LVOT Peak Jaciel. 129.0 cm/s RACHEL (VMAX) 2.65 cm2 RACHEL (VTI) 2.41 cm2 AI P 1/2 Time 403 ms Mitral Valve MV E Velocity 160.9 cm/s MV DECEL TIME 195 ms MV A Velocity 37.3 cm/s MV PHT 65 ms E/A Ratio 4.3 MVA (PHT) 3.37 cm2 TDI E/Medial E' 19.3 Pulmonary Valve PV Peak Velocity 77.4 cm/s PV Peak Grad. 2 mmHg Tricuspid Valve TR P. Velocity 374 cm/s RAP ESTIMATE 10 mmHg TR Peak Gr. 56 mmHg RVSP 66 mmHg LEFT VENTRICLE The left ventricle is normal size with mild proximal septal thickening. Overall systolic function is low normal. Mid anteroseptal wall appears akinetic. LVEF is 50-55%. RIGHT VENTRICLE RV is normal size and function. Elevated right heart pressures as noted above. ATRIA Left atrium is moderately dilated. AORTIC VALVE Trileaflet AV appears mildly sclerotic without stenosis. Moderate insufficiency. MITRAL VALVE Mitral valve leaflets are thickened with mild annular calcification. No stenosis. Mild to moderate re gurgitation. TRICUSPID VALVE The tricuspid valve is normal in structure with mild to moderate regurgitation. PULMONIC VALVE The pulmonary valve is normal in structure without insufficiency. GREAT VESSELS The aortic root is normal in size. IVC is dilated and collapses greater than 50% with inspiration. PERICARDIUM Normal pericardium. No effusion. Other Information Study Quality: Adequate
== END 2025-03-01 23:59 | disposition home or self-care (01) ==
LOC: RAD 14:57
PROVIDERS: ATTEND Internal Medicine Cardiovascular Disease
DX: I08.3 Combined rheumatic disorders of mitral, aortic and tricuspid valves (principal); I48.20 Chronic atrial fibrillation, unspecified; Z95.0 Presence of cardiac pacemaker
CPT/HCPCS: 93306

== ENCOUNTER 2025-03-29 08:27 | Outpatient (CLI) | payer MEDICARE, MEDICAID ==
--- NOTE | 2025-03-29 09:35 | RADIOLOGY REPORT ---
CLINICAL INDICATION: Pain; MASS-FOREHEAD TECHNIQUE: 4 radiographic views of the skull were obtained. Comparison: None FINDINGS/IMPRESSION: There is no evidence of acute fracture or dislocation. The visualized joint space is well maintained. The alignment is anatomical. There is no radiopaque foreign body.
== END 2025-03-29 23:59 | disposition home or self-care (01) ==
LOC: RAD 08:27
PROVIDERS: ATTEND Surgery
DX: R22.0 Localized swelling, mass and lump, head (principal)
CPT/HCPCS: 70260